=== PATIENT | female | born 1980 | race American Indian/Alaskan Native ===

== ENCOUNTER 2018-05-09 06:05 | Day surgery (SDC) | payer OTHER ==
[~2018-05-09 06:05] MED LIST: DOCUSATE SODIU100 MG PO; Mylicon 125MG PO; OXYC1TAB9 PO; PRENATE ADVANCE PO
[2018-05-09] MEDS ORDERED: NAPROXEN SODIU550 M1 PO (10:22)
[2018-05-09] MEDS ORDERED: ZITHROMAX500 MG PO (10:22)
== END 2018-05-09 15:30 | disposition home or self-care (01) ==
LOC: CIR.AMB 06:05
DX: O02.1 Missed abortion (principal); Z3A.10 10 weeks gestation of pregnancy